=== PATIENT | female | born 1955 | race Caucasian/White ===

== ENCOUNTER 2019-11-03 08:56 | Inpatient (IN) ==
[2019-11-03] MEDS ORDERED: ALBUTEROL NEB INH ONE (09:43)
--- NOTE | 2019-11-03 10:01 | Diag Imaging Result Doc PS360 ---
EXAM: CHEST-1 VIEW HISTORY: SOB/Sepsis TECHNIQUE: Single view COMPARISON: 09/13/2017 FINDINGS: The lungs are well expanded. The heart is not enlarged. The vessels are not distended. There are no infiltrates. No effusion identified. IMPRESSION: No pneumonia Electronically signed by Mason Yañez 11/03/2019 9:58 AM
[2019-11-03 10:11] LABS: ALLEN TEST YES; BE 4.3 mmoll (-3.0-3.0); BLOOD TYPE ARTERIAL; O2(CT) 18.1 mL/dL (15.0-23.0); PO2(98.6) 62 mmHg (60-100); SAMPLE BLOOD; SAO2 93.4 % (95.0-100.0); THB 14.7 g/dL (11.5-17.4); pH(98.6) 7.33 (7.35-7.45)
[2019-11-03 10:11] LABS: AGAP 14; ALB/GLOB RATIO 1.6; ALBUMIN 4.4 g/dL (3.5-5.0); ALKALINE PHOSPHATASE 95 U/L (32-104); BUN 12 mg/dL (8-22); CALCIUM 9.9 mg/dL (8.8-10.2); CHLORIDE 101 mmol/L (98-107); CK PROFILE 146 U/L (24-173); COSMO 291; CREATININE 0.7 mg/dL (0.5-0.9); ESTIMATED GFR > 60; GLUCOSE 102 mg/dL (70-104); GOT 37 U/L (10-30); GPT 21 U/L (10-36); MAGNESIUM 1.9 mg/dL (1.5-2.7); POTASSIUM 4.1 mmol/L (3.5-5.1); SODIUM 146 mmol/L (136-145); TCO2 31 mmol/L (25-35); TOTAL BILIRUBIN 0.15 mg/dL (0.20-1.00); TOTAL PROTEIN 7.1 g/dL (6.3-8.3)
[2019-11-03 10:14] LABS: INR 0.84; PROTIME 11.5 Seconds (11.0-16.0)
[2019-11-03 10:15] LABS: BASO# 0.03 X1000 (0.0-0.2); BASO% 0.3 % (0.0-0.8); EOS# 0.09 X1000 (0.0-0.7); HEMATOCRIT 46.8 % (37.0-47.0); HEMOGLOBIN 15.3 g/dL (12.0-16.0); IMM GRAN# 0.02 X1000 (0.0-0.04); IMM GRAN% 0.2 % (0.0-0.5); MCH 35.1 PG (27-31); MCHC 32.7 g/dL (33-37); MCV 107.3 FL (81-99); MONO# 0.59 X1000 (0.11-0.59); MONO% 6.6 % (1.7-9.3); MPV 10.2 FL (7.4-10.4); NEUT% 82.9 % (42.2-75.2); PLT 183 X1000 (130-400); PTT 25.3 Seconds (22.3-41.8); RBC 4.36 XMIL (4.2-5.4); RDW 14.5 % (11.5-14.5); WBC 8.93 X1000 (4.8-10.8)
[2019-11-03] MEDS ORDERED: SOLU-MEDROL IV ONE (10:16)
[2019-11-03] MEDS ORDERED: DUONEB (A & A) INH ONE (10:16)
[2019-11-03 10:18] LABS: PCO2(98.6) 61 mmHg (35-45)
--- NOTE | 2019-11-03 10:18 | PROVIDER DOCUMENTATION ---
HPI-General Adult - General Chief Complaint: SEPSIS ALERT - D Stated Complaint: SOB Time Seen by Provider: 11/03/19 09:00 Source: patient Allergies/Adverse Reactions: Patient Allergies Allergy/AdvReac Type Severity Reaction Status Date / Time aspirin Allergy SWELLING Verified 11/03/19 10:02 Home Medications: Home Medication List Medication Instructions Recorded Confirmed Last Taken Type Albuterol [Albuterol Neb] 2.5 mg INH BID PRN PRN 11/03/19 11/03/19 11/03/19 History - History of Present Illness -Gen Adult Nature of Presenting Problems: [id number] presents to the ER via EMS with c/o SOB. EMS reports that on arrival to residence O2 sats on room air was 79%. On arrival to ER sats were 85% on 4L. Now she has rebounded and is on 2L with O2 sats at 2L. She reports she has a history of COPD, smokes 1PPD. She reports here wheezing and SOB have been progressivly getting worse over the past week with fevers on and off. However, she did not record temps. She is weak, in moderate distress, and has extreme dyspnea with any exertion. Onset/Duration: reports: 1 week ago Modifying Factors: improves with: coughing (productive) Associated Symptoms: reports: cough, shortness of breath Similar Symptoms Previously?: No Recently seen or treated by another doctor?: No Review of Systems - Adult - REVIEW OF SYSTEMS - ADULT Constitutional: reports: see HPI, chills, fever Eyes: reports: no symptoms reported Ears, Nose, Mouth & Throat: reports: no symptoms reported Cardiovascular: reports: no symptoms reported. denies: chest pain Respiratory: reports: see HPI, cough, dyspnea on exertion, shortness of breath, wheezing Gastrointestinal: reports: no symptoms reported Genitourinary: reports: no symptoms reported. denies: dysuria, hematuria, urgency Musculoskeletal: reports: no symptoms reported Integumentary: reports: no symptoms reported Neurological: reports: no symptoms reported. denies: dizziness/vertigo, headache/migraines Psychiatric: reports: no symptoms reported Endocrine: reports: no symptoms reported Hematologic/Lymphatic: reports: no symptoms reported Allergic/Immunologic: reports: no symptoms reported All Other Systems: Reviewed and Negative Past History - Adult - PAST MEDICAL HISTORY-ADULT Review of Records: reports: Old Records Reviewed, Nursing Assessment Review, Medications Reviewed, Social history reviewed & non-contributory. Major Childhood Illnesses: reports: denies history Cardiovascular: reports: denies history Respiratory: reports: denies history Gastrointestinal: reports: denies history Obstetrical/Gynecological: reports: denies history Genitourinary: reports: denies history Musculoskeletal: reports: denies history Neurological: reports: denies history Endocrine/Immune: reports: denies history Other Conditions: reports: denies history - IMMUNIZATION STATUS Childhood Immunizations: See Nurse Assessment Flu Vaccine: See Nurse Assessment - FAMILY HISTORY Family History: reviewed, not pertinent - SOCIAL HISTORY Smoking: cigarettes, greater than 1 pack/day Provider spent 3-5 mins advising pt. on dangers of tobacco.: Discussed manners to quit use, and f/u contacts for add'l counseling. Substance Use: denies Living Situation: family Physical Exam-General - PHYSICAL EXAM-ADULT Initial Vital Signs Reviewed: Yes - CONSTITUTIONAL General Appearance: alert, moderate distress, thin - EYES Eyes: PERRL/EOMI, pink conjunctivae - HEAD, EARS, NOSE, MOUTH & THROAT HENMT: normocephalic/atraumatic, normal ENT inspection. negative: frontal tenderness, maxillary tenderness - NECK Neck: non-tender, full range of motion, supple. negative: lymphadenopathy - RESPIRATORY Respiratory: chest non-tender, respiratory distress (extreme dyspnea with any exertion), decreased breath sounds - CARDIOVASCULAR Cardiovascular: regular rate, rhythm, no edema, tachycardia - GASTROINTESTINAL (ABDOMEN) Abdominal Exam: non tender, soft - MUSCULOSKELETAL Extremity: normal range of motion Peripheral Pulses: radial (R): 2+, radial (L): 2+ - SKIN Integumentary: other (flushed) - NEUROLOGIC Neurologic: grossly normal - PSYCHIATRIC Psych/Mental Status: normal mood/affect, oriented x 3 Progress - PLAN OF CARE/RESULTS Progress/Plan/Lab Results: Vital Signs - 8 hr 11/03/19 09:01 Temperature 97.7 F Pulse Rate 105 H Respiratory Rate 22 Blood Pressure 148/96 O2 Sat by Pulse Oximetry 85 L Laboratory Results - last 24 hr 11/03/19 11/03/19 11/03/19 09:28 09:28 09:28 Sodium 146 H Potassium 4.1 Chloride 101 Carbon Dioxide 31 Anion Gap 14 BUN 12 Creatinine 0.7 Estimated GFR/1.73 m2 > 60 BUN/Creatinine Ratio 17 Glucose 102 Calculated Osmolality 291 Calcium 9.9 Magnesium 1.9 Total Bilirubin 0.15 L AST 37 H ALT 21 Alkaline Phosphatase 95 Creatine Kinase 146 Troponin T < 0.010 Total Protein 7.1 Albumin 4.4 Globulin 2.7 Albumin/Globulin Ratio 1.6 Plasma Lactate 2.1 Orders Category Date Time Status Cardiac Monitoring DIRECTED Care 11/03/19 09:34 Active IV Insertion ORDERED Care 11/03/19 09:34 Active Notify MD of + Sepsis Screen NOW Care 11/03/19 09:34 Active Notify Physician As Ordered Care 11/03/19 09:34 Active CHEST-1 VIEW [RAD] Stat Exams 11/03/19 09:34 Completed ABG [RESP] Routine Lab 11/03/19 09:34 Ordered BLOOD CULTURE [BLDCUL] Stat Lab 11/03/19 09:34 Uncollected CBC WITH DIFF [HEME] Stat Lab 11/03/19 09:28 Results CK PROFILE [SP CHEM] Stat Lab 11/03/19 09:28 Completed COMPREHENSIVE METABOLIC PANEL [CHEM] Stat Lab 11/03/19 09:28 Completed LACTATE, PLASMA [CHEM] Lab 11/03/19 12:45 Uncollected LACTATE, PLASMA [CHEM] Lab 11/03/19 15:45 Uncollected LACTATE, PLASMA [CHEM] Q3H Lab 11/03/19 09:28 Completed MAGNESIUM [CHEM] Stat Lab 11/03/19 09:28 Completed PROTIME WITH INR [COAG] Stat Lab 11/03/19 09:28 Received PTT [COAG] Stat Lab 11/03/19 09:28 Received TROPONIN T Stat Lab 11/03/19 09:28 Completed URINALYSIS W/POSS RFLX CULT [URINALYSIS] Stat Lab 11/03/19 09:34 Uncollected Albuterol [Albuterol Neb] Med 11/03/19 09:43 Discontinued 2.5 mg INH NOW ONE Aerosol Treatments Routine Oth 11/03/19 09:44 Active Aerosol Treatments Stat Oth 11/03/19 09:44 Active Oxygen Device Stat Oth 11/03/19 09:34 Active Result Diagrams: 11/03/19 09:28 11/03/19 09:28 - CONSULTS/PCP/HOSPITALIST Notification #1 *Consult/PCP/Hospitalist*: LYNDSAY Amin Time Discussed: 13:08 Reason/Comments: COPD exacerbation Consult Disposition: Admit Departure - Departure Date of Disposition Decision: 11/03/19 Time of Disposition Decision: 13:08 DIAGNOSIS: COPD exacerbation Disposition: ADMITTED INPATIENT 09 Certified Medical Emergency: Emergent Condition: Critical Additional Instructions: ED Follow Up Instructions: You have been treated by a care provider in the Emergency Department. These instructions are being provided to you so you can have an understanding of how to care for yourself upon discharge. Upon discharge from the Emergency Department, you are responsible for making arrangements for follow-up care by a physician of your choice. Take all prescribed medications as directed. Return to the Emergency Department immediately for any new or worsening symptoms. You may call the Physician Referral phone number at [phone] to obtain a list of Physicians who are taking new patients. Referrals and Follow-Ups: None,PCP [Primary Care Provider] - Discharge Education: Steps to Quit Smoking, [id number] - Critical Care Note This patient required my direct & personal management of CC.: No Attestation - Physician/ LULI Attestation Patient care was provided by Advanced Practice Provider:: Yes Advanced Practice Provider:: Dell Jacob Advanced Practice Provider documentation review:: The Mid-level provider documentation, treatment plan and medical decision making was reviewed by the physician who agrees with all treatment and medical decision making by the MLP. The physician spent face to face time with patient:: No Advanced Practice Provider documentation review:: Supervising physician onsite and consulted in the evaluation and care of this patient. The physician did not have a face to face encounter with the patient.
[2019-11-03 10:19] LABS: MODALITY CANNULA; O2HB 87.6 % (95.0-99.0)
[2019-11-03 10:20] LABS: URINE SOURCE CLEAN CATCH
[2019-11-03 10:38] LABS: BILIRUBIN URINE NEGATIVE (NEGATIVE); BLOOD URINE TRACE (NEGATIVE); COLOR YELLOW; GLUCOSE URINE 100 mg/dL (NEGATIVE); KETONE URINE NEGATIVE (NEGATIVE); LEUKOCYTES URINE NEGATIVE (NEGATIVE); NITRITE URINE NEGATIVE (NEGATIVE); PROTEIN URINE 200 mg/dL (NEGATIVE); SP GRAVITY URINE 1.022; TURBIDITY URINE CLEAR (CLEAR); UROBILINOGEN URINE NORMAL (NORMAL)
[2019-11-03 10:39] LABS: UR EPITHELIAL CELLS <10 /HPF (<10); URINE BACTERIA NEGATIVE /HPF; URINE RBC <10 /HPF (<10); URINE WBC <10 /HPF (<10)
[2019-11-03] MEDS ORDERED: ZOFRAN IV PRN (14:08)
[2019-11-03] MEDS ORDERED: LEVAQUIN 500 MG/D5W 500 MG/100 ML IVPB IV SCH (14:15)
--- NOTE | 2019-11-03 14:44 | HISTORY AND PHYSICAL ---
This is a 64-year-old. She does not have a doctor. She says she do not do doctors. She is a 64- year-old who presented to the emergency room stating that for the last week she has had more shortness of breath. She says she coughs every morning and she has done it for a long time. She reports that she lost about 40 pounds 2 years ago and has stayed stable since then but she has coughed up some thick mucus and became much hard to breathe, especially in the morning. This morning she got up to go the bathroom. She was very short of breath. She apparently wakes up at various intervals and takes some NyQuil and [id number] decongestants. She is still smoking. She says she does not know how much she smokes she rolls her own and will roll 2 or 3 at a time. She also reports that she is in a house that was told it has black mold. She got very short of breath and had to just stoop over the couch and she is not sure if she passed out or not but they brought her here to the emergency room. Emergency room we did not see evidence of pneumonia. X- ray was consistent with COPD and we gave her some supplemental O2 which really helped. PAST MEDICAL HISTORY: She has been told she had asthma, has been told she had COPD. She has been told she has been exposed to black mold. Really no other medical history that she is aware of. No surgical history. SOCIAL HISTORY: Her daughter lives with her and I think her granddaughter and her boyfriend and she rolls her own tobacco, not sure how much she smokes a day. Sounds like she has had chronic bronchitis coughed every morning for several years. No ethanol or alcohol. No illicit drugs reported. FAMILY HISTORY: Unremarkable. She did not report any medical history she is aware of. REVIEW OF SYSTEMS: General: No weight gain or loss in the last couple years. She lost 40 pounds about 2 years ago and has remained steady since then. She eats about 1 meal a day. HEENT: No change in visual or hearing acuity. Respiratory: No increased work of breathing or dyspnea. No bronchospasm. Cardiovascular: No chest pain or tachy palpitation GI and : No gross hematuria, dysuria. Musculoskeletal/Neurologic: No significant complaints Endocrinologic/hemologic: No significant history. PHYSICAL EXAMINATION: Temperature 97.7 degrees, pulse 90, respirations 19, blood pressure 122/80. Pupils are equal, round. LUNGS: Her lung mclean are clear except decreased breath sounds both bases. Prolonged expiratory phase, she breathes expiration with pursed lips. She has clubbing appreciated nail beds. Abdomen is soft. No pedal edema skin warm and dry. CARDIOVASCULAR: Regular rhythm and rate without murmur or S3. ABDOMEN: Soft. SKIN: Warm and dry. NECK: Supple without adenopathy. No sign of thyromegaly. LAB: White count 8930, hematocrit 46, platelet count 186,000. Sodium 146, potassium 4.1, chloride 101, BUN 12, creatinine 0.7, blood sugar 102, calcium 9.9, AST 37, ALT 21, alkaline phos 95, albumin is 4.4. Pro time is 11.5, INR is 0.84, PTT is 25. Urinalysis is unremarkable. Blood gas pH is 7.33, pCO2 61, PO2 is 62, O2 saturation is 93%. Her chest x-ray no sign of infiltrate, lungs are well expanded. Heart is not enlarged. Vessels are nondistended. No infiltrates seen. No effusion. ASSESSMENT AND PLAN: 1. Appears to be chronic obstructive pulmonary disease, chronic obstructive pulmonary disease exacerbation. I am going to treat her for bronchitis bronchitic organisms. Will use Levaquin. We will give her duo nebs q.4 hours while awake and we will put her on steroid inhaler. We can use Symbicort will use 80 mcg 2 puffs twice a day. We will put her on guaifenesin to thin out the mucous guaifenesin ER 1200 mg twice a day, will give her some Tessalon Perles to help her with her cough, supplementary O2 right at 2 L and we need to see if she maybe needs O2 at home. We will give her normal saline and run at 85 mL an hour. 2. We will give her regular diet. 3. Still using tobacco. We have counseled her on the need to quit smoking. She is aware of that. We will give her a nicotine patch 21 mg daily. We are going to check her T4, TSH, B12, folate, and we will check a basic metabolic profile with magnesium and CBC again in the morning. We will send a sputum for culture and I think she may benefit from some Solu-Medrol so we will put her on Solu-Medrol 60 mg IV q.8 hours. cc: William Bello MD
[2019-11-03] MEDS: NICODERM PATCH TD SCH (14:49)
[2019-11-03] MEDS: NS 1,000 ML IV SCH (14:49)
[2019-11-03] MEDS: XOPENEX NEB INH SCH ×3 (15:30→22:43)
[2019-11-03] MEDS: ATROVENT NEB INH SCH ×3 (15:30→22:43)
[2019-11-03] MEDS ORDERED: BENADRYL IV ONE (15:41)
[2019-11-03] MEDS: ROCEPHIN 1 GM in NS 50 ML IV SCH (17:51)
[2019-11-03] MEDS: SOLU-MEDROL IV SCH (17:52)
[2019-11-03] MEDS: MUCOMYST 20% INH SCH (19:06)
[2019-11-03] MEDS: PULMICORT INH SCH (19:07)
[2019-11-03] MEDS: SYMBICORT 80/4.5 MICROGM INHALER INH SCH (19:10)
[2019-11-03] MEDS ORDERED: MOTRIN PO ONE (21:20)
[2019-11-03] MEDS ORDERED: TYLENOL PO PRN (21:21)
[2019-11-03] MEDS: MUCINEX PO SCH (21:58)
[2019-11-04] MEDS: TESSALON PO PRN ×3 (01:20→16:39)
[2019-11-04] MEDS: NS 1,000 ML IV SCH ×2 (01:20→12:41)
[2019-11-04] MEDS: SOLU-MEDROL IV SCH ×3 (01:20→16:41)
[2019-11-04] MEDS: XOPENEX NEB INH SCH ×6 (03:05→22:58)
[2019-11-04] MEDS: ATROVENT NEB INH SCH ×6 (03:05→22:58)
[2019-11-04 07:40] LABS: AGAP 14; ALB/GLOB RATIO 1.7; ALBUMIN 3.8 g/dL (3.5-5.0); ALKALINE PHOSPHATASE 73 U/L (32-104); BUN 9 mg/dL (8-22); CALCIUM 9.4 mg/dL (8.8-10.2); CHLORIDE 104 mmol/L (98-107); COSMO 285; CREATININE 0.5 mg/dL (0.5-0.9); ESTIMATED GFR > 60; GLUCOSE 158 mg/dL (70-104); GOT 21 U/L (10-30); GPT 13 U/L (10-36); SODIUM 142 mmol/L (136-145); TCO2 24 mmol/L (25-35); TOTAL BILIRUBIN < 0.15 mg/dL (0.20-1.00)
[2019-11-04 07:50] LABS: HEMATOCRIT 43.3 % (37.0-47.0); HEMOGLOBIN 13.3 g/dL (12.0-16.0); LYMPH# 0.45 X1000 (1.2-3.4); LYMPH% 6.5 % (20.5-51.1); MCH 33.3 PG (27-31); MCHC 30.7 g/dL (33-37); MCV 108.5 FL (81-99); MONO# 0.11 X1000 (0.11-0.59); MONO% 1.6 % (1.7-9.3); MPV 10.5 FL (7.4-10.4); NEUT# 6.37 X1000 (1.4-6.5); NEUT% 91.9 % (42.2-75.2); PLT 186 X1000 (130-400); RBC 3.99 XMIL (4.2-5.4); RDW 14.3 % (11.5-14.5); WBC 6.93 X1000 (4.8-10.8)
[2019-11-04] MEDS: PULMICORT INH SCH ×2 (08:07→19:16)
[2019-11-04 08:09] LABS: HEMOGLOBIN A1C 5.5 % (4.8-6.0)
[2019-11-04] MEDS: MUCOMYST 20% INH SCH (08:17)
[2019-11-04] MEDS: SYMBICORT 80/4.5 MICROGM INHALER INH SCH ×2 (08:17→22:57)
[2019-11-04] MEDS: NICODERM PATCH TD SCH (08:32)
[2019-11-04] MEDS: MUCINEX PO SCH ×2 (08:32→20:42)
[2019-11-04 08:39] LABS: FREE T4 0.72 ng/dL (0.93-1.70); TSH 0.48 uIUmL (0.27-4.20)
[2019-11-04 09:08] LABS: BANDS 4 % (0-1); HYPOCHROM 1+; LYMPHS 8 % (21-51); MONO 2 % (1-9); SEGS 86 % (42-75)
--- NOTE | 2019-11-04 09:34 | PROGRESS NOTE ---
DATE: 11/04/2019 SUBJECTIVE: Ms. Salmeron says she is miserable, coughing quite a bit. Her eyes are watering. Ears feel full. OBJECTIVE: Vital signs: Temperature 97.8 degrees, pulse 70, respirations 16, blood pressure 126/67. HEENT: Pupils are equal and round. Lungs: Lungs are clear in her lung mclean. Prolonged expiratory phase. Decreased breath sounds in both bases. Cardiovascular: Regular rhythm and rate without murmur or S3. Abdomen: Soft. Skin: Warm and dry. DIAGNOSTIC DATA: Review of her lab from yesterday shows white count was 6930, hematocrit is 43, platelet count is 186,000. Sodium 142, potassium 4.0, chloride 104, BUN 9, creatinine 0.5, albumin is 3.8. Urinalysis unremarkable. Blood gas shows pH is 7.33, pCO2 61, PO2 is 62, O2 saturation is 93%. Her chest x-ray showed no pneumonia, lungs well expanded, no infiltrates. REVIEW OF ORDERS: She is getting methylprednisone 60 mg IV q.8. I will decrease that down to 40 q.8. Getting normal saline 85 mL an hour, ceftriaxone she gets 1 g IV q.24 hours. Acetylcysteine apparently it just really bothered her and so we will stop that. I am going to let her try a little bit of Singulair to see if that will help, and she is already on guaifenesin. Ask Pulmonary to see her tomorrow. cc: William Bello MD
[2019-11-04] MEDS: SINGULAIR PO SCH (11:32)
[2019-11-04] MEDS: BENADRYL PO PRN ×2 (11:35→16:43)
--- NOTE | 2019-11-04 15:10 | CONSULTATION ---
DATE OF CONSULTATION: 11/04/2019 REQUESTING PROVIDER: Dr. William Bello. REASON FOR CONSULTATION: Help with evaluation and treatment. HISTORY OF PRESENT ILLNESS: This is a 64-year-old female with a medical history of COPD, asthma, and ongoing tobacco abuse, but she has not seen any primary physician for a long time because she can't afford any health insurance. She presented to the ER yesterday morning with worsening shortness of breath via EMS. She was found desaturated with oxygen saturation of 79% at room air. Initial workup in the ER revealed COPD exacerbation with acute hypoxic and hypercapnic respiratory failure. She has been on IV Solu-Medrol and Levaquin one dosage yesterday and Rocephin daily. The patient currently is lying in bed with no acute distress noted. She states she is feeling a lot better. She reports a chronic diarrhea, acute fever and chills that has been resolved after admission, witnessed snoring, one episodes of chest tightness, headache for 4 days that has been improving since yesterday, chronic productive cough, shortness of breath and wheezing. She has no chest pain, palpitation, nausea, urination discomfort or noticeable weight change recently. PAST MEDICAL HISTORY: 1. Asthma. The patient reports she has been taking allergy pill for a long time to help control her asthma. She is not on any inhaler. 2. Chronic obstructive pulmonary disease. 3. Ongoing tobacco abuse. PAST SURGICAL HISTORY: Unknown. SOCIAL HISTORY: The patient lives at home with her daughter, her grandson and grandsons girlfriend. She has 3 dogs inside the house has 4 cats outdoors as pets. She rolls her own tobacco and smokes at least more than 1/4 pack per day, depending on how many she rolls. She drinks occasionally. She has no illicit drug use. FAMILY HISTORY: Unknown. REVIEW OF SYSTEMS: A 10-point review of systems was conducted and the pertinent is listed in the HPI, otherwise noncontributory. PHYSICAL EXAMINATION: Vital Signs: Temperature 97.8 degrees, blood pressure 126/67, pulse 71, respiratory rate 16, oxygen saturation 97% on nasal cannula at 3 L. General: Chronically ill appearing malnourished, lying in bed with no acute distress noted. HEENT: Atraumatic, normocephalic. Trachea midline. Mucosa pink and moist. Respiratory: Even and unlabored. Symmetrical excursion. Auscultation revealed diminished breathing sounds bilaterally and prolonged expiratory phase. No wheezing noted at this time. Cardiovascular: Regular rate and rhythm. Gastrointestinal: Soft nondistended, nontender. Normoactive bowel sounds in all 4 quadrants. Extremities: No pedal edema. No cyanosis, clubbing noted. Dorsalis pedis diminished bilaterally. Neurologic: Alert oriented x4. Speech fluent. Follows commands. LAB DATA: White blood cells 6.93, hemoglobin 13.3, hematocrit 43.3, platelets 186,000. Sodium 142, potassium 4.0, chloride 104, carbon dioxide 24, BUN 9, creatinine 0.5, glucose 159. IMAGING DATA: Chest x-ray on 11/03/2019 showed no pneumonia. ASSESSMENT: This is a 64-year-old female with a medical history of asthma, chronic obstructive pulmonary disease with ongoing tobacco abuse. She has been admitted since 11/03/2019 with chronic obstructive pulmonary disease exacerbation. 1. Acute hypoxic hypercapnic respiratory failure with partially compensated respiratory acidosis. 2. Chronic obstructive pulmonary disease exacerbation. PLAN: 1. Continue supplemental oxygen as needed. 2. Continue antibiotics, steroid and bronchodilators. 3. Follow up with CBC, CMP, sputum culture, blood culture, and ABG. 4. Educate the patient on the importance of smoking cessation. The patient states that she is ready to quit smoking. 5. Further recommendations pending hospital course. Thank you for the courtesy of this consult. Dictated by LYNDSAY Alonso for Ena Nloan MD cc: LYNDSAY Alonso MD [facility]
[2019-11-04] MEDS: ROCEPHIN 1 GM in NS 50 ML IV SCH (16:40)
[2019-11-05] MEDS: NS 1,000 ML IV SCH ×2 (00:22→13:11)
[2019-11-05] MEDS: SOLU-MEDROL IV SCH ×3 (00:23→15:22)
[2019-11-05] MEDS: ATROVENT NEB INH SCH ×6 (03:05→23:04)
[2019-11-05] MEDS: XOPENEX NEB INH SCH ×6 (03:05→23:04)
[2019-11-05 04:53] LABS: ALLEN TEST YES; BE -0.6 mmoll (-3.0-3.0); BLOOD TYPE ARTERIAL; HCO3-(ACT) 24.4 mmoll (20.0-26.0); METHB 0.9 % (0.0-1.5); O2(CT) 17.1 mL/dL (15.0-23.0); O2HB 94.9 % (95.0-99.0); PO2(98.6) 80 mmHg (60-100); SAMPLE BLOOD; SAO2 96.7 % (95.0-100.0); THB 12.8 g/dL (11.5-17.4); pH(98.6) 7.29 (7.35-7.45)
[2019-11-05 05:00] LABS: MODALITY ROOM AIR; PCO2(98.6) 56 mmHg (35-45)
[2019-11-05 07:31] LABS: HEMOGLOBIN 12.8 g/dL (12.0-16.0); LYMPH# 0.31 X1000 (1.2-3.4); LYMPH% 3.3 % (20.5-51.1); MCH 33.6 PG (27-31); MCHC 30.5 g/dL (33-37); MCV 110.2 FL (81-99); MONO# 0.24 X1000 (0.11-0.59); MONO% 2.5 % (1.7-9.3); MPV 10.6 FL (7.4-10.4); NEUT# 8.87 X1000 (1.4-6.5); NEUT% 94.2 % (42.2-75.2); PLT 198 X1000 (130-400); RBC 3.81 XMIL (4.2-5.4); RDW 14.8 % (11.5-14.5); WBC 9.42 X1000 (4.8-10.8)
--- NOTE | 2019-11-05 07:34 | EKG Report ---
Test Performed on : 11/03/2019 09:14:37 AM Test Reason : ED. NO EKG ORDER FOR MUSE Blood Pressure : / mmHG Vent. Rate : 102 BPM Atrial Rate : 102 BPM P-R Int : 124 ms QRS Dur : 066 ms QT Int : 356 ms P-R-T Axes : 063 030 078 degrees QTc Int : 463 ms Sinus tachycardia. Nonspecific T wave abnormality Abnormal ECG When compared with ECG of 04-SEP-2008 20:56, Nonspecific T wave abnormality now evident in Lateral leads Unconfirmed Result
[2019-11-05 07:51] LABS: BANDS 4 % (0-1); LYMPHS 2 % (21-51); SEGS 94 % (42-75)
[2019-11-05 07:56] LABS: AGAP 2; ALB/GLOB RATIO 1.4; ALBUMIN 3.4 g/dL (3.5-5.0); ALKALINE PHOSPHATASE 74 U/L (32-104); BUN 11 mg/dL (8-22); CALCIUM 8.9 mg/dL (8.8-10.2); CHLORIDE 105 mmol/L (98-107); COSMO 280; CREATININE 0.5 mg/dL (0.5-0.9); ESTIMATED GFR > 60; GLUCOSE 150 mg/dL (70-104); GOT 17 U/L (10-30); GPT 13 U/L (10-36); POTASSIUM 4.3 mmol/L (3.5-5.1); SODIUM 139 mmol/L (136-145); TCO2 32 mmol/L (25-35); TOTAL BILIRUBIN < 0.15 mg/dL (0.20-1.00); TOTAL PROTEIN 5.9 g/dL (6.3-8.3)
[2019-11-05] MEDS: TESSALON PO PRN (08:01)
[2019-11-05] MEDS: NICODERM PATCH TD SCH (08:01)
[2019-11-05] MEDS: SINGULAIR PO SCH (08:01)
[2019-11-05] MEDS: MUCINEX PO SCH ×2 (08:01→20:57)
[2019-11-05] MEDS: BENADRYL PO PRN (08:01)
[2019-11-05] MEDS: PULMICORT INH SCH ×2 (08:26→19:37)
[2019-11-05] MEDS: SYMBICORT 80/4.5 MICROGM INHALER INH SCH ×2 (08:26→19:38)
[2019-11-05] MEDS: ROCEPHIN 1 GM in NS 50 ML IV SCH (15:21)
--- NOTE | 2019-11-05 17:14 | PROGRESS NOTE ---
DATE: 11/05/2019 SUBJECTIVE: Ms. Salmeron is breathing better. She is feeling a little better. She was off her oxygen this morning and she was hoping she gets to go home tomorrow. She is still coughing. OBJECTIVE: Vital signs: Temperature 98.1. She has remained afebrile. Pulse 110, respirations 16, blood pressure 147/76. HEENT: Pupils are equal and round. Lungs: Clear in all lung mclean. Cardiovascular: Regular rhythm and rate without murmur or S3. Abdomen: Soft. Skin: Warm and dry. Urine output is 3,900 mL. ASSESSMENT AND PLAN: 1. Acute hypoxemic, hypercapnic respiratory failure, chronic obstructive pulmonary disease exacerbation. Continue supplemental oxygen as needed. See if she needs oxygen at home. Respiratory to define whether she is going to need it. 2. Continue present antibiotics, steroid, and bronchodilators. We are treating for bronchitis. She does clinically appear to have improved. 3. Nutrition. She apparently is eating pretty good at the present time, so hopefully she can go home in the morning. Influenza screen from a nasopharyngeal swab was negative for A and B and no growth in blood cultures. So we will see if we can get her set up to go home tomorrow. cc: William Bello MD
--- NOTE | 2019-11-05 21:09 | Diag Imaging Result Doc PS360 ---
EXAM: CT THORAX/NECK W/CONTRAST 11/05/2019 HISTORY: hoarseness and weight loss TECHNIQUE: This exam was performed using automated exposure control, adjustment of mA or kV according to patient size, and/or use of iterative reconstruction technique. COMMENT: Thorax: There are no previous studies. There are coronary calcifications. The aorta is normal in caliber and there is no dissection. There is a hiatal hernia containing solid contents. There is no evidence of significant adenopathy. There are tiny bilateral pleural effusions. There is severe COPD. There is minimal atelectasis in the posterior costophrenic sulcus of the left lower lobe and in the inferior lingula. The regional skeleton appears to be intact. NECK: The thyroid gland is unremarkable. There are some gas collections present around the larynx. The epiglottis is normal in appearance. The nasopharynx is unremarkable. There is no evidence of significant adenopathy. IMPRESSION: COPD. Atelectasis versus pneumonia in the lingula and left lower lobe. The possibility of laryngitis cannot be excluded. Electronically signed by Bernardino Quarles 11/05/2019 9:07 PM
[2019-11-06] MEDS: SOLU-MEDROL IV SCH ×3 (00:27→16:23)
[2019-11-06] MEDS: NS 1,000 ML IV SCH (00:27)
[2019-11-06] MEDS: BENADRYL PO PRN ×2 (04:21→09:33)
[2019-11-06] MEDS: XOPENEX NEB INH SCH ×4 (04:35→16:00)
[2019-11-06] MEDS: ATROVENT NEB INH SCH ×4 (04:35→16:00)
--- NOTE | 2019-11-06 07:59 | PULMONOLOGY PROGRESS NOTE ---
DATE: 11/05/2019 SUBJECTIVE: The patient reports she feels better. She is anxious to leave and go home. She has a coarse voice which is prominent on exam. She reports she has had a course voice for over a year. OBJECTIVE: Vital Signs: The patient has been afebrile for the last 24 hours. Blood pressure 147/76, heart rate 111, respiratory rate 16, oxygen saturation 93% on 3 L. HEENT: Pupils are equal and reactive. Oropharynx appears clear. Neck: Supple. Chest: Reveals prolonged expiratory phase. Cardiac: S1, S2. Abdomen: Soft. Extremities: Without edema. LABORATORY DATA: White blood count 9.42, hemoglobin 12.8, platelet count 198,000. Arterial blood gas on room air reveals pH 7.29, pCO2 of 56, PO2 of 80. IMPRESSION: A 64-year-old with: 1. Chronic obstructive pulmonary disease exacerbation. 2. Hoarseness with weight loss. 3. Acute hypoxemic respiratory failure. 4. Chronic hypercapnic respiratory failure. 5. Tobacco use with ongoing nicotine addiction. RECOMMENDATIONS: 1. CT scan of the neck and thorax given 1 year history of hoarseness. If CT scans are negative, recommend patient be evaluated by ENT on an outpatient basis to rule out vocal cord tumor. 2. Strongly encourage patient to discontinue all tobacco products. 3. Recommend discharging patient on an inhaled corticosteroid and a long-acting beta agonist such as Advair, Symbicort, Dulera, or generic Advair. 4. Continue bronchodilators and steroids, antibiotics. 5. Smoking cessation was discussed at length. cc: Luis Manuel Moreno MD
[2019-11-06] MEDS: PULMICORT INH SCH (08:02)
[2019-11-06 08:05] LABS: AGAP 13; ALB/GLOB RATIO 1.7; ALBUMIN 4.1 g/dL (3.5-5.0); ALKALINE PHOSPHATASE 76 U/L (32-104); BUN 11 mg/dL (8-22); CALCIUM 9.6 mg/dL (8.8-10.2); CHLORIDE 101 mmol/L (98-107); COSMO 286; CREATININE 0.5 mg/dL (0.5-0.9); ESTIMATED GFR > 60; GLUCOSE 121 mg/dL (70-104); GOT 15 U/L (10-30); GPT 15 U/L (10-36); POTASSIUM 4.1 mmol/L (3.5-5.1); SODIUM 143 mmol/L (136-145); TCO2 29 mmol/L (25-35); TOTAL BILIRUBIN < 0.15 mg/dL (0.20-1.00); TOTAL PROTEIN 6.5 g/dL (6.3-8.3)
[2019-11-06 08:09] LABS: HEMATOCRIT 44.6 % (37.0-47.0); HEMOGLOBIN 14.5 g/dL (12.0-16.0); IMM GRAN# 0.03 X1000 (0.0-0.04); IMM GRAN% 0.3 % (0.0-0.5); LYMPH# 0.54 X1000 (1.2-3.4); LYMPH% 5.7 % (20.5-51.1); MCH 34.7 PG (27-31); MCHC 32.5 g/dL (33-37); MCV 106.7 FL (81-99); MONO# 0.26 X1000 (0.11-0.59); MONO% 2.8 % (1.7-9.3); MPV 10.3 FL (7.4-10.4); NEUT# 8.58 X1000 (1.4-6.5); NEUT% 91.2 % (42.2-75.2); PLT 209 X1000 (130-400); RBC 4.18 XMIL (4.2-5.4); RDW 14.7 % (11.5-14.5); WBC 9.41 X1000 (4.8-10.8)
[2019-11-06 08:21] LABS: LYMPHS 8 % (21-51); MONO 3 % (1-9); SEGS 89 % (42-75)
[2019-11-06] MEDS: NICODERM PATCH TD SCH (08:56)
[2019-11-06] MEDS: MUCINEX PO SCH (08:56)
[2019-11-06] MEDS: SINGULAIR PO SCH (08:56)
[2019-11-06] MEDS ORDERED: LASIX IV ONE (09:04)
[2019-11-06] MEDS: TESSALON PO PRN (09:33)
[2019-11-06] MEDS: AFRIN NASAL SPRAY NAS ONE ×2 (10:20→12:10)
[2019-11-06] MEDS ORDERED: AFRIN NASAL SPRAY NAS ONE (10:30)
[2019-11-06] MEDS: SYMBICORT 80/4.5 MICROGM INHALER INH SCH (12:09)
[2019-11-06 15:36] VITALS: BP 158/105
[2019-11-06] MEDS: ROCEPHIN 1 GM in NS 50 ML IV SCH (16:23)
--- NOTE | 2019-11-07 04:56 | CONSULTATION ---
DATE OF CONSULTATION: 11/06/2019 DIAGNOSES: 1. Hoarseness. 2. Asthma. HISTORY: This is a 64-year-old lady who Dr. Moreno wished me to evaluate for hoarseness. She has had a CT scan this morning, which I reviewed. She has had some coughing fairly severely over the last week, she says. PHYSICAL EXAM: No audible stridor. Voice has some raspy quality to it. Breathing is nonlabored. Flexible fiberoptic laryngoscopy was performed through the left nostril after decongesting was performed using Afrin. The nasopharynx and nasal cavity were unremarkable. She has good palate motion. The oropharynx mucosa is normal. Tongue base is normal in appearance. The endolaryngeal structures appeared normal. Good vocal cord movement. No swelling, edema, or airway impingement. Good visualization was obtained to the subglottic region, hypopharyngeal mucosa is normal. IMPRESSION: History of coughing. CT scan today demonstrated a small amount of air in the endolaryngeal soft tissues. At this point, her airway is not compromised by direct visualization using the laryngoscope. It appears completely normal caliber and with no impending airway issues. The emphysema in her endolaryngeal soft tissues is likely due to coughing, that seems to be better now. I have asked her to follow up with me in 1 weeks' time. I would hope she goes home with some Tessalon Perles and antibiotics. cc: Teo Nicolas MD
--- NOTE | 2019-11-07 07:57 | PULMONOLOGY PROGRESS NOTE ---
DATE: 11/06/2019 SUBJECTIVE: The patient is awake, alert, and conversant. She reports her breathing continues to improve. Her voice remains coarse. OBJECTIVE: Vital Signs: The patient has been afebrile for the last 24 hours. Blood pressure 150/92, heart rate 103, respiratory rate 16, and oxygen saturation 92% on room air. HEENT: Pupils are equal and reactive. Oropharynx appears clear. Neck: Supple. Lungs: Chest reveals prolonged expiratory phase. Cardiac: S1-S2. Abdomen: Soft. Extremities: Without edema. LABORATORIES: CT scan of the neck reveals some inflammation and gas collection around the larynx. CT scan of the thorax reveals atelectasis in the lingula and left lower lobe. IMPRESSION: A 64-year-old with: 1. Chronic obstructive pulmonary disease exacerbation. 2. Hoarseness with abnormal CT scan of the neck. 3. Hypoxemic respiratory failure that has resolved. 4. Chronic hypercapnic respiratory failure. 5. Ongoing tobacco use. RECOMMENDATIONS: 1. Ask ENT to visualize the vocal cords to rule out tumor or acute infectious process. 2. Strongly encourage patient to discontinue tobacco. 3. Recommend discharging patient on an inhaled corticosteroid/long-acting beta agonist. 4. Smoking cessation has been strongly encouraged at the office visit. cc: Luis Manuel Moreno MD
--- NOTE | 2019-11-07 14:27 | DISCHARGE SUMMARY ---
ADMISSION DATE: 11/03/2019 DISCHARGE DATE: 11/06/2019 DISCHARGE DIAGNOSES: 1. Laryngitis. 2. Acute hypercapnic respiratory failure. 3. Chronic obstructive pulmonary disease exacerbation. CONSULTATIONS: 1. Dr. Moreno 2. Dr. Nicolas, ear, nose, and throat. SUMMARY: This is a 64-year-old female with asthma, COPD, smoking, who reports cough and congestion. She was treated as a COPD exacerbation with breathing treatments. She slowly improved. I guess initially Dr. Nolan was consulted. She was placed on Mucomyst. She was felt stable for discharge. There was some concern about her voice loss and hoarseness evaluating for possible tumor, but ear, nose and throat was analyzed and direct laryngoscopy did not show anything, so she was felt stable for discharge on the . Breathing was better. DISCHARGE INSTRUCTIONS: She was discharged on albuterol nebs q.6, Omnicef 300 b.i.d. for 7 days, a prednisone taper, Symbicort 2 puffs b.i.d., and Tessalon Perles. She will need to follow up with Dr. Nicolas in 1 to [address] Moreno in 2 weeks. cc: Jake Gardner MD
== END 2019-11-06 18:43 | disposition home or self-care (01) | DRG 190 ==
LOC: SUPCPDRO → ED 08:56 → SUATTDRO 15:09 → EDIPHOLD 15:09 → 3N 16:43
PROVIDERS: ATTEND Internal Medicine